=== PATIENT | male | born 1970 | race Caucasian/White ===

== ENCOUNTER 2022-07-30 13:47 | Emergency (ER) | payer BC, SELFPAY ==
[2022-07-30 13:48] VITALS: BP 100/78; PULSE 106; RESP 18; TEMP 36.8; O2SAT 99; BMI 25.3
[2022-07-30 14:21] LABS: Absolute Lymphocyte Count 1.25 X10^3/uL (0.83-4.51); Absolute Neutrophil Count 9.1 X10^3/uL (2.0-7.7); Basophil# 0.07 X10^3/uL; Basophil% 0.6 % (0-1); Eosinophil# 0.38 X10^3/uL; Eosinophils% 3.2 % (0-5); Hematocrit 47.1 % (40-54); Hemoglobin 16.1 g/dL (13.0-16.5); Lymphocyte # 1.25 X10^3/ul (0.83-4.51); Lymphocyte % 10.4 % (19-41); Mean Corp Hgb Conc 34.2 g/dL (32-36); Mean Corpuscular Hgb 31.3 pg (27.0-32.0); Mean Corpuscular Volume 91.6 fL (80-94); Mean Platelet Vol. 9.9 fl (6.2-12.0); Monocyte# 1.17 X10^3/uL; Monocyte% 9.7 % (0-10); NRBC Flagged by Analyzer 0 % (0-5); Neutrophil # 9.12 X10^3/uL (2.7-7.7); Neutrophil % 75.8 % (47-70); Platelet Count 185 K/mm3 (150-450); RBC Distribution Width CV 12.7 % (11.6-14.6); RBC Distribution Width SD 42.5 fl (35.1-43.9); Red Blood Count 5.14 M/mm3 (4.6-6.2)
[2022-07-30 14:33] LABS: Bacteria 0 SEEN /hpf (None Seen); Mucous, Urine 0 SEEN /hpf (<or=2+); Red Blood Cells-Urine 0 SEEN /hpf (0-5); Squamous Epithelial Cells - UA 0 SEEN /hpf (0-5); White Blood Cells 0 SEEN /hpf (0-5)
--- NOTE | 2022-07-30 14:36 | CT_ITS ---
INDICATION: LLQ pain EXAMINATION: CT ABDOMEN AND PELVIS WITH CONTRAST - CT Abdomen And Pelvis W/ Contrast Injection TECHNIQUE: Helically acquired images were obtained of the abdomen and pelvis following IV contrast. A radiation dose optimization technique was used for this scan. IV Contrast dosage and agent: 100 cc [id number] Oral contrast: None. COMPARISON: None. FINDINGS: LOWER CHEST: Large calcified granuloma right lower lobe. No cardiomegaly or pericardial effusion. LIVER: Homogeneous. No focal mass. GALLBLADDER AND BILIARY TREE: No calcified gallstones. No gallbladder distension or wall edema. No intra- or extrahepatic biliary ductal dilation. PANCREAS: No focal cystic or solid mass. SPLEEN: Normal size without focal cystic or solid mass. ADRENAL GLANDS: No nodules. KIDNEYS AND URETERS: Normal renal size and position. No hydronephrosis. PERITONEUM: No ascites or free air. BOWEL: Normal appendix. No stomach or bowel distension. Sigmoid diverticulosis with segment of wall thickening and adjacent inflammatory stranding in the proximal sigmoid colon. LYMPH NODES: No enlarged mesenteric or retroperitoneal lymph nodes. VESSELS: Aorta is non-dilated. URINARY BLADDER: Unremarkable. REPRODUCTIVE ORGANS: No pelvic masses. ABDOMINAL WALL: Small fat-containing left inguinal hernia. BONES: No acute or aggressive abnormality. CT/Abdomen/Pelvis W IV Cont ONLY IMPRESSION: Acute sigmoid diverticulitis. No abscess or evidence of perforation. Electronically Signed: Mathew Onofre MD at 15:45 EDT ,
[2022-07-30 14:37] LABS: Color, Urine Yellow (Yellow); Glucose, Dipstick 1000 mg/dl (Normal); Ketone-Dipstick 5 mg/dl (Negative); Leukocyte Esterase-Dipstick Negative /ul (Negative); Nitrite-Dipstick Negative (Negative); Occult Blood-Urine Negative /ul (Negative); Protein-Dipstick Negative (Negative); Urine Bilirubin Dipstick Negative (Negative); Urine Clarity Clear (Clear); Urine Urobilinogen Normal (Normal)
--- NOTE | 2022-07-30 14:38 | EX.ED.DYSGE1 ---
HPI <MARK Carrasquillo - Last Filed: 07/30/22 17:24> History of Present Illness Chief Complaint: Abd Pain Narrative Narrative: Patient presenting today with lower abdominal pain that is more severe on the left side that he has had since around 2:30 AM this morning. He describes it as sharp. He does have a history of diverticulitis and thinks that this pain feels similar. His prior episode of diverticulitis resulted in a bowel perforation. He thinks he had a fever earlier today. He is nauseous but has not had any vomiting. He has had about 6 episodes of loose stool. He denies any melena, hematochezia, prior abdominal surgery, and urinary symptoms. PMH includes type 2 diabetes mellitus. PFSH <MARK Carrasquillo - Last Filed: 07/30/22 17:24> PFSH Medical History Deviated septum Diabetes mellitus Hypercholesteremia Home Medications amoxicillin 875 mg-potassium clavulanate 125 mg tablet 1 tab PO BID 10 days #20 tabs 07/30/22 [Rx Last Taken Unknown] atorvastatin 20 mg tablet 20 mg PO DAILY 07/30/22 [History Last Taken Unknown] empagliflozin 10 mg tablet (Jardiance) 10 mg PO DAILY 07/30/22 [History Last Taken Unknown] hydrocodone-acetaminophen 5-325mg 5mg-325mg 1 tab PO Q4H PRN PRN Pain 3 days #10 TABLETS 07/30/22 [Rx Last Taken Unknown] lisinopril 2.5 mg tablet 2.5 mg PO DAILY 07/30/22 [History Last Taken Unknown] metformin 500 mg tablet,extended release 24 hr 1,000 mg PO BID 07/30/22 [History Last Taken Unknown] ondansetron 4 mg disintegrating tablet 4 mg PO Q8H PRN PRN Nausea #10 tabs 07/30/22 [Rx Last Taken Unknown] Allergy/AdvReac Type Severity Reaction Status Date / Time No Known Allergies Allergy Verified 07/30/22 13:49 Surgical History Hx of tonsillectomy Social History Smoking Status: Never smoker ROS <MARK Carrasquillo - Last Filed: 07/30/22 17:24> ROS ED Constitutional Constitutional ED: Reports fever(s) and subjective; Denies chills Cardiovascular Cardiovascular: Denies chest pain Respiratory/Chest Respiratory/Chest: Denies cough or dyspnea Gastrointestinal Gastrointestinal: Reports abdominal pain, diarrhea and nausea; Denies constipation or vomiting Genitourinary Genitourinary ED: Denies dysuria, hematuria or urinary urgency Musculoskeletal Musculoskeletal: Denies arthralgias or myalgias Integumentary Denies rash Neurologic Neurologic: Denies weakness EXAM <MARK Carrasquillo - Last Filed: 07/30/22 17:24> Physical Exam Const Vital Signs: 07/30/22 13:48 Temperature 98.2 F Temperature Source Temporal Pulse Rate 106 H Respiratory Rate 18 Blood Pressure 100/78 Blood Pressure Mean 85 Pulse Ox 99 Oxygen Delivery Method Room Air Positive well nourished, well developed and no apparent distress General Appearance ED: well developed HEENT Reports normocephalic and head/scalp atraumatic Mouth ED: Yes moist mucous membranes normal Eyes PERRL and EOMs intact bilaterally Neck full ROM and supple Chest Wall inspection of chest normal Resp normal respiratory effort and clear to auscultation bilaterally Cardio regular rate and regular rhythm GI non-distended and no masses GI Narrative: Left lower quadrant tenderness to palpation, no rigidity or guarding. No pulsatile mass. Palpation: soft Back/Spine normal ROM and normal to inspection Extremity normal to inspection and full ROM Neuro oriented x3, CN's II-XII intact bilaterally, moves all extremities, no focal motor deficits and no sensory deficits noted Sensorium / Orientation: awake and alert Psych mental status grossly normal and thought process normal Skin no rashes or lesions noted and no wounds <Dr. Francesco Bryan, DO - Last Filed: 07/30/22 17:30> Physical Exam Const Vital Signs: 07/30/22 13:48 Temperature 98.2 F Temperature Source Temporal Pulse Rate 106 H Respiratory Rate 18 Blood Pressure 100/78 Blood Pressure Mean 85 Pulse Ox 99 Oxygen Delivery Method Room Air MDM <MARK Carrasquillo - Last Filed: 07/30/22 17:24> MDM MDM Narrative Medical decision making narrative: Patient presenting today with lower abdominal pain that is worse on the left side, 5-6 episodes of loose stool started today. He reports not having an appetite and feeling slightly nauseous, he has had no vomiting. At this time, he does not want anything for pain or nausea but I did offer it to him. He will be given IV fluids. Labs obtained for leukocytosis, anemia, electrolyte abnormality, ALECIA, rule out UTI, assess liver enzymes. Patient does have leukocytosis. UA negative for UTI. CT scan of the abdomen and pelvis obtained to rule rule out diverticulitis, appendicitis, SBO, and does show acute sigmoid diverticulitis. He will be started on Augmentin with first dose here, he will be sent home with a prescription for Lawrence, Zofran, and Augmentin. He has been given diet instructions and is to follow-up with his PCP. He has been given return instructions and will be discharged home stable condition, he is comfortable with plan. Lab Data Attestation: I reviewed the patient's lab results. Labs: Laboratory Results - last 24 hr 07/30/22 07/30/22 07/30/22 14:07 14:07 14:30 WBC 12.0 H RBC 5.14 Hgb 16.1 Hct 47.1 MCV 91.6 MCH 31.3 MCHC 34.2 RDW Std Deviation 42.5 RDW Coeff of Quinten 12.7 Plt Count 185 MPV 9.9 Immature Gran % (Auto) 0.300 Neut % (Auto) 75.8 H Lymph % (Auto) 10.4 L [place] % (Auto) 9.7 Eos % (Auto) 3.2 Baso % (Auto) 0.6 Absolute Neuts (auto) 9.1 H Absolute Lymphs (auto) 1.25 Nucleated RBC % 0 Sodium 136 Potassium 4.0 Chloride 103 Carbon Dioxide 27.0 Anion Gap 6 BUN 16 Creatinine 1.26 Estim Creat Clear Calc 74.42 Est GFR (MDRD) Af Amer 77 Est GFR (MDRD) Non-Af 64 BUN/Creatinine Ratio 12.7 Glucose 153 H Calcium 9.6 Total Bilirubin 0.70 AST 12 L ALT 23 Alkaline Phosphatase 110 Total Protein 7.7 Albumin 4.0 Globulin 3.7 Albumin/Globulin Ratio 1.1 Urine Color Yellow Urine Clarity Clear Urine pH 6.0 Ur Specific Serafina 1.010 Urine Protein Negative Urine Glucose (UA) 1000 H Urine Ketones 5 H Urine Occult Blood Negative Urine Nitrite Negative Urine Bilirubin Negative Urine Urobilinogen Normal Ur Leukocyte Esterase Negative Urine RBC 0 SEEN Urine WBC 0 SEEN Ur Squamous Epith Cells 0 SEEN Urine Bacteria 0 SEEN Urine Mucus 0 SEEN Radiography Diagnostic Testing: Clinical Impression(s) from Imaging Studies Abdomen/Pelvis CT 07/30/22 14:36 IMPRESSION: Acute sigmoid diverticulitis. No abscess or evidence of perforation. Electronically Signed: Mathew Onofre MD at 15:45 EDT Reading Location ID and State: [id number] / ID Tel , Service support , <Dr. Francesco Bryan, DO - Last Filed: 07/30/22 17:30> [facility] MDM Narrative Medical decision making narrative: Patient presenting today with lower abdominal pain that is worse on the left side, 5-6 episodes of loose stool started today. He reports not having an appetite and feeling slightly nauseous, he has had no vomiting. At this time, he does not want anything for pain or nausea but I did offer it to him. He will be given IV fluids. Labs obtained for leukocytosis, anemia, electrolyte abnormality, ALECIA, rule out UTI, assess liver enzymes. Patient does have leukocytosis. UA negative for UTI. CT scan of the abdomen and pelvis obtained to rule rule out diverticulitis, appendicitis, SBO, and does show acute sigmoid diverticulitis. He will be started on Augmentin with first dose here, he will be sent home with a prescription for Lawrence, Zofran, and Augmentin. He has been given diet instructions and is to follow-up with his PCP. He has been given return instructions and will be discharged home stable condition, he is comfortable with plan. I, Dr Bryan, have reviewed the above progress note and course of action in the ER; agree with the above. I have personally seen and evaluated this patient, gone over history and physical, and discussed disposition and treatment plan with the patient. Lab Data Labs: Laboratory Results - last 24 hr 07/30/22 07/30/22 07/30/22 14:07 14:07 14:30 WBC 12.0 H RBC 5.14 Hgb 16.1 Hct 47.1 MCV 91.6 MCH 31.3 MCHC 34.2 RDW Std Deviation 42.5 RDW Coeff of Quinten 12.7 Plt Count 185 MPV 9.9 Immature Gran % (Auto) 0.300 Neut % (Auto) 75.8 H Lymph % (Auto) 10.4 L [place] % (Auto) 9.7 Eos % (Auto) 3.2 Baso % (Auto) 0.6 Absolute Neuts (auto) 9.1 H Absolute Lymphs (auto) 1.25 Nucleated RBC % 0 Sodium 136 Potassium 4.0 Chloride 103 Carbon Dioxide 27.0 Anion Gap 6 BUN 16 Creatinine 1.26 Estim Creat Clear Calc 74.42 Est GFR (MDRD) Af Amer 77 Est GFR (MDRD) Non-Af 64 BUN/Creatinine Ratio 12.7 Glucose 153 H Calcium 9.6 Total Bilirubin 0.70 AST 12 L ALT 23 Alkaline Phosphatase 110 Total Protein 7.7 Albumin 4.0 Globulin 3.7 Albumin/Globulin Ratio 1.1 Urine Color Yellow Urine Clarity Clear Urine pH 6.0 Ur Specific Serafina 1.010 Urine Protein Negative Urine Glucose (UA) 1000 H Urine Ketones 5 H Urine Occult Blood Negative Urine Nitrite Negative Urine Bilirubin Negative Urine Urobilinogen Normal Ur Leukocyte Esterase Negative Urine RBC 0 SEEN Urine WBC 0 SEEN Ur Squamous Epith Cells 0 SEEN Urine Bacteria 0 SEEN Urine Mucus 0 SEEN Radiography Diagnostic Testing: Clinical Impression(s) from Imaging Studies Abdomen/Pelvis CT 07/30/22 14:36 IMPRESSION: Acute sigmoid diverticulitis. No abscess or evidence of perforation. Electronically Signed: Mathew Onofre MD at 15:45 EDT Reading Location ID and State: [facility] / ID Tel , Service support , Treatment and Re-Evaluation Comments:: I, Dr Bryan, have reviewed the above progress note and course of action in the ER; agree with the above. I have personally seen and evaluated this patient, gone over history and physical, and discussed disposition and treatment plan with the patient. Discharge Plan Triage Chief Complaint: Abd Pain ED Midlevel Provider: Yenny Woodard ED Provider: Francesco Bryan Dx/Rx/DC Orders Clinical Impression: Diverticulitis Instructions: Diverticulitis Dc Prescriptions: New amoxicillin-pot clavulanate 875-125 mg tablet 1 tab PO BID 10 Days Qty: 20 0RF hydrocodone-acetaminophen 5-325 mg tablet 1 tab PO Q4H PRN PRN (Reason: Pain) 3 Days Qty: 10 0RF ondansetron 4 mg tablet,disintegrating 4 mg PO Q8H PRN PRN (Reason: Nausea) Qty: 10 0RF No Action atorvastatin 20 mg tablet 20 mg PO DAILY Label Comments: TAKE 1 TABLET BY MOUTH EVERY DAY FOR 90 DAYS metformin 500 mg tablet extended release 24 hr 1,000 mg PO BID Label Comments: TAKE 2 TABLETS BY MOUTH WITH MEALS TWICE A DAY 90 DAYS lisinopril 2.5 mg tablet 2.5 mg PO DAILY Jardiance 10 mg tablet 10 mg PO DAILY Label Comments: TAKE 1 TABLET BY MOUTH EVERY DAY Primary Care Provider: LUCY GREENBERG Referrals: [facility] Doctor,Out of [Non-Staff] - Activity Restrictions/Additional Instructions: Please follow-up with your PCP and return for any worsening of your symptoms, eat a clear liquid diet for the next day or 2 and then progressed to low fiber diet for the next few days until your symptoms resolve. Disposition Disposition: Home, Self Care Discharge Date/Time: 07/30/22 17:06
[2022-07-30] MEDS: 0.9% Normal Saline 1,000 ML 1000 ML IV (14:40)
[2022-07-30 14:44] LABS: ALB/GLOB Ratio 1.1 RATIO (0.9-2.4); AST(SGOT) 12 U/L (15-37); Alanine Aminotransfer ALT/SGPT 23 U/L (16-61); Alkaline Phosphatase 110 U/L (45-117); Anion Gap 6 (5-15); BUN 16 mg/dL (7-18); BUN/Creat Ratio 12.7 RATIO (10-20); Calcium,Total 9.6 mg/dL (8.5-10.1); Chloride 103 mmol/L (98-107); Creatinine, Serum 1.26 mg/dL (0.70-1.30); EST Glomerular Filtration Rate 64 mL/min (>60); Est Glom Filt Rate - Afr Amer 77 mL/min (>60); Estimated Creatinine Clearance 74.42 ml/min; Globulin 3.7 g/dL (2.2-4.2); Glucose 153 mg/dL (74-106); Protein, Total 7.7 g/dL (6.4-8.2); Sodium Level 136 mmol/L (136-145)
[2022-07-30] MEDS: Amox/Clavulanate 875 MG Tablet PO (16:56)
== END 2022-07-30 17:06 | disposition home or self-care (01) ==
PROVIDERS: Emergency Provider Emergency Medicine; Visit Provider Emergency Medicine
DX: K57.32 Diverticulitis of large intestine without perforation or abscess without bleeding (principal); N17.9 Acute kidney failure, unspecified; E11.9 Type 2 diabetes mellitus without complications; D64.9 Anemia, unspecified; E78.00 Pure hypercholesterolemia, unspecified; Z87.19 Personal history of other diseases of the digestive system; Z79.899 Other long term (current) drug therapy; Z79.84 Long term (current) use of oral hypoglycemic drugs
CPT/HCPCS: 74177; 80053; 81001; 85025; 96360; 96361; 99283; J7030; Q9967; A4216

== ENCOUNTER 2023-05-30 07:22 | Day surgery (SDC) | payer BC, SELFPAY ==
[2023-05-30] VITALS (8 sets, daily range): BP systolic 96–138; BP diastolic 41–78; PULSE 64–97; RESP 14–18; TEMP 36.2–36.7; O2SAT 93–99; BMI 25.2
--- NOTE | 2023-05-30 07:35 | ED.VIS.GI ---
HPI HPI - GI History of Present Illness Chief Complaint: Foreign Body Informant: patient Abdominal Pain/Flank Pain Onset: Today, Yesterday and Hours Context: Sudden Onset Timing: Continuous Current Severity: Moderate Maximum Severity: Moderate Worsened by: Nothing Relieved by: Nothing Diarrhea/Melena/Hematochezia GI Symptom: Negative for Diarrhea Associated Symptoms Associated Symptoms: Negative for Dysuria or Frequency Narrative Narrative: 53-year-old diabetic male was eating chicken last night for dinner just before 6:00 and believes he has chicken stuck. No prior history no prior upper endoscopy. No prior dilatation or surgical procedure. States since that time he has been unable to swallow solids or liquids. Prior similar symptoms: No Recent Illness/Hospitalization: No PFSH PFSH Medical History Deviated septum Diabetes mellitus Hypercholesteremia Home Medications amoxicillin 875 mg-potassium clavulanate 125 mg tablet 1 tab PO BID 10 days #20 tabs 07/30/22 [Rx Last Taken Unknown] atorvastatin 20 mg tablet 20 mg PO DAILY 07/30/22 [History Last Taken Unknown] empagliflozin 10 mg tablet (Jardiance) 10 mg PO DAILY 07/30/22 [History Last Taken Unknown] hydrocodone-acetaminophen 5-325mg 5mg-325mg 1 tab PO Q4H PRN PRN Pain 3 days #10 TABLETS 07/30/22 [Rx Last Taken Unknown] lisinopril 2.5 mg tablet 2.5 mg PO DAILY 07/30/22 [History Last Taken Unknown] metformin 500 mg tablet,extended release 24 hr 1,000 mg PO BID 07/30/22 [History Last Taken Unknown] ondansetron 4 mg disintegrating tablet 4 mg PO Q8H PRN PRN Nausea #10 tabs 07/30/22 [Rx Last Taken Unknown] Allergy/AdvReac Type Severity Reaction Status Date / Time mushroom AdvReac Severe VOMITING Verified 05/30/23 07:25 Surgical History Hx of tonsillectomy Social History Smoking Status: Never smoker ROS ROS ED ROS Narrative No recent illness. Vomiting now that he is unable to swallow. Review of Systems ROS Unobtainable: Denies due to encephalopathy Constitutional Constitutional ED: Denies chills or fever(s) ENT ENT ED: Denies ear pain Cardiovascular Cardiovascular: Denies chest pain Respiratory/Chest Respiratory/Chest: Denies cough or dyspnea Gastrointestinal Gastrointestinal: Reports vomiting; Denies abdominal pain Genitourinary Genitourinary ED: Denies dysuria or hematuria Musculoskeletal Musculoskeletal: Denies arthralgias or back pain Integumentary Denies abscess or Abrasions Neurologic Neurologic: Denies headache(s) Psychiatric Psychiatric: Denies anxiety or depression Endocrine Endocrinology: Denies polydipsia Hematologic/Lymphatic Hematologic/Lymphatic: Denies easy bleeding or easy bruising Allergic/Immunologic Allergic/Immunologic ED: Denies mouth swelling or tongue swelling EXAM Physical Exam Narrative Exam Narrative: 53-year-old male no acute distress. Vital signs stable afebrile. Pulse ox 96% on room air no signs hypoxia. H EENT exam unremarkable. Neck nontender. Lungs clear to auscultation bilaterally. Heart regular rhythm rate about 95 no murmur. Chest wall and ribs nontender. Abdomen soft nontender. No peritoneal signs. Moving all 4 extremities. Nontender no edema. Neurologically is awake and alert with no focal motor deficits. I gave the patient a glass of water he attempted to swallow it after about a minute he started bringing the water back up. Const Vital Signs: 05/30/23 07:23 05/30/23 07:23 05/30/23 07:56 Temperature 98 F 97.8 F Temperature Source Temporal Temporal Pulse Rate 97 78 Respiratory Rate 16 16 Respiratory Effort Normal Respiratory Pattern Normal Blood Pressure 127/78 H 134/78 H Blood Pressure Mean 94 96 Blood Pressure Source Monitor Pulse Ox 96 98 Oxygen Delivery Method Room Air Room Air Positive well nourished and well developed; Negative for obese, cachectic, contractures or unkempt General Appearance ED: well developed and NAD; Negative for unkempt, cachectic, contractures or pallor Nutritional Appearance: Negative for cachectic or obese HEENT Reports moist mucous membranes; Denies dry mucous membranes normocephalic and atraumatic; Negative for trauma or tenderness Mouth ED: No dry mucous membranes Mouth: No dry mucous membranes Eyes PERRL and EOMs intact bilaterally General Eye ED: Negative for pale conjunctiva or scleral icterus Neck no lymphadenopathy, supple and no JVD General: Negative for tenderness Lymph Lymphatic: Negative for other Resp normal respiratory effort and clear to auscultation bilaterally Effort and Inspection: Negative for respiratory distress Auscultation: Negative for rales, rhonchi or wheezes Cardio regular rate, regular rhythm, S1 normal heart sound, S2 normal heart sound and no murmurs Rate: Negative for bradycardia or tachycardic Rhythm: Negative for abnormal rhythm GI non-tender, non-distended and no masses Inspection: Negative for abdominal distention Auscultation: normoactive bowel sounds Palpation: soft; Negative for tender, guarding or rebound tenderness present Back/Spine no CVA tenderness General Back: Negative for CVA tenderness Cervical Spine: Negative for cervical spine tenderness Thoracic Spine / Upper Back: Negative for thoracic spinal tenderness Lumbar Spine / Lower Back: Negative for lumbar spinal tenderness Extremity full ROM General Extremety ED: Negative for edema or tenderness General Extremity: Negative for edema Neuro CN's II-XII intact bilaterally, moves all extremities and gait normal Sensorium / Orientation: alert, oriented to person, oriented to place and oriented to time; Negative for orientation impaired, confused, lethargic or stuporous Motor Exam: strength 5/5 throughout; Negative for general weakness or strength abnormal Psych mental status grossly normal and thought process normal Appearance: Negative for unkempt Attitude: No agitated Mood & Affect: Negative for depressed, anxious or tearful Skin no wounds General Skin Exam: Negative for jaundice or pallor Lesions: no lesions Rashes: no rashes Trauma: Negative for abrasion Nails: Negative for discolored MDM MDM MDM Narrative Medical decision making narrative: 53-year-old male esophageal food bolus since just before 6:[address] an IV. I have GI on page for upper endoscopy to evaluate him for esophageal obstruction due to food bolus. I spoke to Dr. Varela and he will work the patient on the endoscopy schedule this morning he planned around possibly 11 AM. Patient is aware of this. Discharge Plan Triage Chief Complaint: Foreign Body ED Provider: Scott Amado Dx/Rx/DC Orders Clinical Impression: Acute esophageal obstruction, History of diabetes mellitus Prescriptions: No Action atorvastatin 20 mg tablet 20 mg PO DAILY Patient Comments: TAKE 1 TABLET BY MOUTH EVERY DAY FOR 90 DAYS metformin 500 mg tablet extended release 24 hr 1,000 mg PO BID Patient Comments: TAKE 2 TABLETS BY MOUTH WITH MEALS TWICE A DAY 90 DAYS lisinopril 2.5 mg tablet 2.5 mg PO DAILY Jardiance 10 mg tablet 10 mg PO DAILY Patient Comments: TAKE 1 TABLET BY MOUTH EVERY DAY amoxicillin-pot clavulanate 875-125 mg tablet 1 tab PO BID 10 Days Qty: 20 0RF hydrocodone-acetaminophen 5-325 mg tablet 1 tab PO Q4H PRN PRN (Reason: Pain) 3 Days Qty: 10 0RF ondansetron 4 mg tablet,disintegrating 4 mg PO Q8H PRN PRN (Reason: Nausea) Qty: 10 0RF Primary Care Provider: LUCY GREENBERG DO Referrals: [facility] Doctor,Out of [Non-Staff] - Disposition Disposition: Acute Care Hospital [facility]
--- NOTE | 2023-05-30 10:32 | NURSING ---
DR SHAIKH ENDO ESOPHAGEAL OBSTRUCTION
--- NOTE | 2023-05-30 11:49 | HP.PCM_ITS ---
HPI - General General Date of Admission: 05/30/23 Date of Service: 05/30/23 Chief Complaint: Foreign body HPI Narrative MARICEL VILLARREAL, is a 53 M who presents with inability to swallow liquids and solids. He was eating chicken last night for dinner just before 6:00 and believes he has chicken stuck. No prior history no prior upper endoscopy. No prior dilatation or surgical procedure. States since that time he has been unable to swallow solids or liquids. [facility] Medical History Deviated septum Diabetes mellitus Hypercholesteremia Home Medications amoxicillin 875 mg-potassium clavulanate 125 mg tablet 1 tab PO BID 10 days #20 tabs 07/30/22 [Rx Last Taken Unknown] atorvastatin 20 mg tablet 20 mg PO DAILY 07/30/22 [History Last Taken Unknown] empagliflozin 10 mg tablet (Jardiance) 10 mg PO DAILY 07/30/22 [History Last Taken Unknown] hydrocodone-acetaminophen 5-325mg 5mg-325mg 1 tab PO Q4H PRN PRN Pain 3 days #10 TABLETS 07/30/22 [Rx Last Taken Unknown] lisinopril 2.5 mg tablet 2.5 mg PO DAILY 07/30/22 [History Last Taken Unknown] metformin 500 mg tablet,extended release 24 hr 1,000 mg PO BID 07/30/22 [History Last Taken Unknown] ondansetron 4 mg disintegrating tablet 4 mg PO Q8H PRN PRN Nausea #10 tabs 07/30/22 [Rx Last Taken Unknown] Allergy/AdvReac Type Severity Reaction Status Date / Time mushroom AdvReac Severe VOMITING Verified 05/30/23 07:25 Surgical History Hx of tonsillectomy Social History Smoking Status: Never smoker ROS Review of Systems ROS Unobtainable: other Constitutional Constitutional: Denies fatigue, fever(s), poor appetite, weight gain or weight loss ENT HEENT: Denies mouth lesions Cardiovascular Cardiovascular: Denies abdominal bloating, abdominal edema or abdominal pain Respiratory/Chest Respiratory/Chest: Denies change in mental status, change in phlegm color, chest congestion or chest tightness Gastrointestinal Gastrointestinal: Denies belching, bloating, change in bowel habits, change in stool character, chewing difficulty, coffee ground emesis, constipation, cramping, diarrhea, dyspepsia, dysphagia, early satiety, excessive flatus, fecal incontinence, heartburn, hematemesis, hematochezia, hemorrhoids, loose stools, melena, nausea, odynophagia, rectal bleeding, tenesmus, vomiting or weight changes Genitourinary Genitourinary: Denies abdominal discomfort, burning urination or itching Musculoskeletal Musculoskeletal: Reports as per HPI; Denies muscle weakness or myalgias Integumentary Integumentary: Denies jaundice Neurologic Neurologic: Denies lack of coordination or weakness Psychiatric Psychiatric: Denies confusion, depression, memory loss, mood swings, paranoia or suicidal ideation Endocrine Endocrinology: Denies systems reviewed and no addt'l complaints, except as documented Hematologic/Lymphatic Hematologic/Lymphatic: Denies anemia, easy bleeding, easy bruising or lymphadenopathy Allergic/Immunologic Allergic/Immunologic: Denies systems reviewed and no addt'l complaints, except as documented Vital Signs Vital Signs Vital Signs: 05/30/23 07:23 05/30/23 07:23 05/30/23 07:56 Temperature 98 F 97.8 F Temperature Source Temporal Temporal Pulse Rate 97 78 Respiratory Rate 16 16 Respiratory Effort Normal Respiratory Pattern Normal Blood Pressure 127/78 H 134/78 H Blood Pressure Mean 94 96 Blood Pressure Source Monitor Pulse Ox 96 98 Oxygen Delivery Method Room Air Room Air 05/30/23 09:23 Temperature 97.8 F Temperature Source Temporal Pulse Rate 64 Respiratory Rate 14 Respiratory Effort Respiratory Pattern Blood Pressure 138/76 H Blood Pressure Mean 96 Blood Pressure Source Pulse Ox 99 Oxygen Delivery Method Room Air Weight Weight: 186 lb 1.122 oz Body Mass Index (BMI) 25.2 Physical Exam Const alert General Appearance: cooperative Orientation / Consciousness: oriented to person HEENT hearing grossly normal bilaterally Head and Scalp: normal to inspection Face and Sinus: face symmetric Nose: external nose normal Mouth: oral and palatal mucosa normal Eyes conjunctivae normal General Eye: normal appearance of both eyes Neck full ROM General: normal visual inspection Lymph Lymphatic: no lymphadenopathy noted Chest inspection of chest normal and palpation of chest normal Chest: symmetrical chest wall rise Resp normal respiratory effort Effort and Inspection: able to speak in complete sentences Cardio regular rate GI non-distended Percussion: normal to percussion Rectal Exam: deferred Neuro Speech: speech normal Gait (Neuro): normal gait Assessment & Plan Assessment/Plan (1) Acute esophageal obstruction: PLAN: 53 gentleman with past medical history of diabetes mellitus who presents with esophageal dysphagia and a food impaction. He will undergo an upper endoscopy with removal of food impaction. He was explained alternatives, risk, benefits including not withstanding bleeding, infection, sepsis, perforation, need for charge and . He will have an ASA of 3.
--- NOTE | 2023-05-30 11:56 | OP.EGD_ITS ---
Patient Name: Reid López Procedure Date: 05/30/2023 11:34 AM Date of : 1970 Age: 53 Procedure: Upper GI endoscopy Indications: Dysphagia Providers: Ronald Varela DO Medicines: Monitored Anesthesia Care Patient Profile: This is a 53 year old male. Refer to note in patient chart for documentation of history and physical. Patient has symptoms of dysphagia with solids. Complications: No immediate complications. Procedure: Pre-Anesthesia Assessment: - Prior to the procedure, a History and Physical was performed, and patient medications and allergies were reviewed. The risks and benefits of the procedure and the sedation options and risks were discussed with the patient. All questions were answered and informed consent was obtained. Patient identification and proposed procedure were verified by the physician in the pre-procedure area. Mental Status Examination: alert and oriented. Airway Examination: normal oropharyngeal airway and neck mobility. Respiratory Examination: clear to auscultation. CV Examination: normal. Prophylactic Antibiotics: The patient does not require prophylactic antibiotics. Prior Anticoagulants: The patient has taken no anticoagulant or antiplatelet agents. After reviewing the risks and benefits, the patient was deemed in satisfactory condition to undergo the procedure. The anesthesia plan was to use monitored anesthesia care (MAC). Immediately prior to administration of medications, the patient was re-assessed for adequacy to receive sedatives. The heart rate, respiratory rate, oxygen saturations, blood pressure, adequacy of pulmonary ventilation, and response to care were monitored throughout the procedure. The physical status of the patient was re-assessed after the procedure. After obtaining informed consent, the endoscope was passed under direct vision. Throughout the procedure, the patient's blood pressure, pulse, and oxygen saturations were monitored continuously. The gastroscope was introduced through the mouth, and advanced to the second part of duodenum. The upper GI endoscopy was accomplished without difficulty. The patient tolerated the procedure well. Scope In: 11:40:43 AM Scope Out: 11:43:41 AM Total Procedure Duration Time 0 hours 2 minutes 58 seconds Findings: Food was found in the lower third of the esophagus. Removal was accomplished with a snare. Verification of patient identification for the specimen was done. Estimated blood loss was minimal. LA Grade C (one or more mucosal breaks continuous between tops of 2 or more mucosal folds, less than 75% circumference) esophagitis with no bleeding was found 34 to 37 cm from the incisors. Biopsies were taken with a cold forceps for histology. Verification of patient identification for the specimen was done. Estimated blood loss was minimal. A severe Schatzki ring was found at the gastroesophageal junction. A guidewire was placed and the scope was withdrawn. Dilation was performed with a Savary dilator with no resistance at 42 Fr. The dilation site was examined and showed mild mucosal disruption. Estimated blood loss was minimal. A small hiatal hernia was present. No other significant abnormalities were identified in a careful examination of the stomach. The duodenal bulb was normal. Impression: - Food in the lower third of the esophagus. Removal was successful. - LA Grade C erosive esophagitis with no bleeding. Biopsied. - Severe Schatzki ring. Dilated. - Small hiatal hernia. - Normal duodenal bulb. Recommendation: - Discharge patient to home. - Resume previous diet. - Continue present medications. - Await pathology results. - Repeat upper endoscopy in 3 months for surveillance. - Use Protonix (pantoprazole) 40 mg PO BID for 6 months. Procedure Code(s): --- Professional --- 88439, Esophagogastroduodenoscopy, flexible, transoral; with removal of foreign body(s) 18136, 51, Esophagogastroduodenoscopy, flexible, transoral; with insertion of guide wire followed by passage of dilator(s) through esophagus over guide wire 38407, 59, Esophagogastroduodenoscopy, flexible, transoral; with biopsy, single or multiple CPT copyright 2021 [employer]. All rights reserved. The codes documented in this report are preliminary and upon cabinet professional review may be revised to meet current compliance requirements. Ronald Varela DO 05/30/2023 11:56:05 AM This report has been signed electronically. Number of Addenda: 0 Note Initiated On: 05/30/2023 11:34 AM
--- NOTE | 2023-05-30 11:57 | OP.CCLET_ITS ---
05/30/2023 Roberth Re : Upper GI endoscopy procedure for Reid López Dear Roberth This procedure was performed on Tuesday, May 30, 2023. My impressions and recommendations are as follows: Impressions : - Food in the lower third of the esophagus. Removal was successful. - LA Grade C erosive esophagitis with no bleeding. Biopsied. - Severe Schatzki ring. Dilated. - Small hiatal hernia. - Normal duodenal bulb. Recommendations : - Discharge patient to home. - Resume previous diet. - Continue present medications. - Await pathology results. - Repeat upper endoscopy in 3 months for surveillance. - Use Protonix (pantoprazole) 40 mg PO BID for 6 months. My findings are described in the full procedure note, which is enclosed. If I can be of further assistance, please feel free to contact me at . Sincerely, Ronald Varela, 05/30/2023 11:56:05 AM This report has been signed electronically.
--- NOTE | 2023-05-30 12:00 | EGD_PTH ---
PATIENT: MARICEL VILLARREAL Jr. LOC: [facility] [place] U#:[id number] AGE/SX: 53/M ROOM: RE05/30/[address]: Dr. Ronald Varela DO : 1970 BED: DIS: 05/30/2023 SPEC #: [id number] RECD: 05/30/23 13:12 STATUS: NICHOLAS PROCTOR #: [id number] LASHAY: 05/30/23 12:[address]: Ronald Varela DEPT: SURGICAL PATHOLOGY RECD BY: Ivette Hauser Tissues: Esophagus, NOS Procedures: Special Stain Group II Special Stain Group I Surgery Specimen Level IV GMS Stain (control) Alcian Blue/PAS (control) HEADER OPERATION: EGD with biopsy PRE-OP DIAGNOSIS: Foreign body TISSUE SUBMITTED: Distal esophagus biopsy MICROSCOPIC DIAGNOSIS Distal esophagus, biopsy: Fragments of gastroesophageal mucosa with focal ulceration, acute and chronic inflammation and bacterial colonization. Intestinal metaplasia (goblet cell metaplasia) dentified. Focal changes consistent with eosinophilic esophagitis. See comment. Michael 06/01/23 COMMENT Increased number of eosinophils (>20 per high power field), consistent with eosinophilic esophagitis are noted. Alcian blue/PAS stain with matched control is used in the evaluation of the specimen. Special stain for fungi is negative for organisms; matched control is appropriate. MICROSCOPIC DESCRIPTION Slides are reviewed. GROSS DESCRIPTION Received in fixative is one container labeled with the patient's name and designated Distal esophagus biopsy. The specimen consists of multiple irregular fragments of light leal soft tissue that in aggregate measure 0.8 x 0.3 x 0.1 cm. The specimen is totally submitted in one cassette. Michael 05/31/23 TC:2 CPT:56529,06536,32952
== END 2023-05-30 12:23 | disposition home or self-care (01) ==
LOC: ED 10:31 → SDC 10:33 → AC 10:34
PROVIDERS: Emergency Provider Emergency Medicine; Visit Provider Internal Medicine Gastroenterology
PROC: 0DJ08ZZ Inspection of Upper Intestinal Tract, Via Natural or Artificial Opening Endoscopic (ICD-10-PCS; CPT 43235; principal; 2023-05-30 11:55)
DX: T18.128A Food in esophagus causing other injury, initial encounter (principal); E11.9 Type 2 diabetes mellitus without complications; K22.2 Esophageal obstruction; K44.9 Diaphragmatic hernia without obstruction or gangrene; E78.00 Pure hypercholesterolemia, unspecified; W44.F3XA Food entering into or through a natural orifice, initial encounter; K22.10 Ulcer of esophagus without bleeding
CPT/HCPCS: 43247; 43239; 43248; 88305; 88312; 88313; 99284; J7030; A4216; J2405